=== PATIENT | female | born 1980 | race Caucasian/White ===

== ENCOUNTER 2016-07-27 07:10 | Day surgery (SDC) | payer OTHER ==
[~2016-07-27] VITALS: Ht 167.6 cm; Wt 84.1 kg
[~2016-07-27 07:10] MED LIST: CATAPRES0.1 MG PO; PRINIVIL10 MG PO
[2016-07-27 10:37] LABS: HEMATOCRIT 40.3 % (36.0-48.0); MCH 27.8 pg (26.0-34.0); MCHC 32.3 g/dL (31.0-37.0); MCV 86.3 fL (80.0-100.0); MEAN PLATELET VOLUME 10.8 fL (7.4-10.4); RBC 4.67 10x6/uL (4.00-5.40); RDW 14.5 % (11.5-14.5); WBC 8.4 10x3/uL (4.8-10.8)
[2016-07-27 10:54] VITALS: BP 111/70; Ht 167.6 cm; Wt 84.1 kg
--- NOTE | 2016-07-27 14:55 | NUR ---
1430--IV DC'D, PT UP TO DRESS AT THIS TIME. ANGUS THORNE 1445--DISCHARGE INSTRUCTIONS GIVEN, PT VERBALIZES UNDERSTANDING. PT OFF UNIT VIA WC. ANGUS THORNE
--- NOTE | 2016-08-17 13:10 | HP ---
PATIENT: OSWALDO PATEL MEDICAL RECORD: [id number] ACCOUNT: [id number] [facility] 76 ADMISSION DATE: 07/27/16 HISTORY AND PHYSICAL EXAMINATION Preoperative History and Physical HISTORY OF PRESENT ILLNESS: Oswaldo is a 36-year-old female. She has been having persistent problems with nasal obstruction and chronic sinusitis. She is being admitted for septoplasty, bilateral inferior turbinate reduction and right middle meatal antrostomy. PAST MEDICAL HISTORY: Includes hypertension. PAST SURGICAL HISTORY: Includes cholecystectomy, dissection of right ovary, tubal ligation, and colonoscopy. CURRENT MEDICATIONS: Lisinopril. ALLERGIES: No known drug allergies. PHYSICAL EXAMINATION: GENERAL: She is healthy-appearing, developmentally normal. FACE: Normal and symmetric, no lesions. EYES: Sclerae and conjunctivae are normal. EARS: Canals and TMs are normal. NOSE: She had very large turbinates She has some polypoid changes of the middle turbinate. She has got septal deviation, no masses or drainage. ORAL CAVITY AND OROPHARYNX: Tongue protrudes to midline. Palate is normal. NECK: No masses. No adenopathy. CHEST: Clear. CARDIOVASCULAR: Regular rate and rhythm, no murmur. EXTREMITIES: Normal. DIAGNOSTIC DATA: CT shows occlusion of the right ostiomeatal complex and mucosal thickening of the right maxillary sinus and some minimal changes in the sphenoid. IMPRESSION: Nasal obstruction, septal deviation, turbinate hypertrophy and chronic sinusitis. PLAN: Septoplasty, bilateral inferior turbinate reduction, and right middle meatal antrostomy. TRANSINT:[id number] Voice Confirmation ID: [id number] DOCUMENT ID: [id number] HISTORY AND PHYSICAL [id number] OSWALDO PATEL GUCCI PALOMARES MD at 1310 CC: [id number] DICTATION DATE: 07/24/16 0850 ACCOUNT EXECUTIVE METALWORKING: 07/24/16 0923 [facility] 07/27/16 [place] [id number]
--- NOTE | 2016-08-17 13:10 | OP ---
PATIENT NAME: OSWALDO PATEL MEDICAL RECORD: [id number] :76 [facility] DATE: SURGEON: GUCCI PALOMARES MD DATE OF OPERATION: 07/27/2016 PREOPERATIVE DIAGNOSES: Nasal obstruction, septal deviation and bilateral inferior turbinate hypertrophy and right chronic maxillary sinusitis. POSTOPERATIVE DIAGNOSES: Nasal obstruction, septal deviation and bilateral inferior turbinate hypertrophy and right chronic maxillary sinusitis. PROCEDURES: 1. Septoplasty. 2. Bilateral inferior turbinate reduction. 3. Right endoscopic middle meatal antrostomy. SURGEON: Gucci Palomares MD ANESTHESIA: General orotracheal. BLOOD LOSS: Less than 5 cc. PACKING: Aguilar splints bilaterally. COMPLICATIONS: None. DISPOSITION: Recovery stable. DESCRIPTION OF PROCEDURE: She was brought to the operating room and placed in supine position, sedated and intubated by anesthesia. She has already been decongested with Afrin ____. The table was turned 90 degrees. Head drape was applied, then using a headlight and nasal speculum, the nose was examined. The inferior turbinates, septum, floor of the nose and the uncinate on the right side were injected with a total of less than 2 cc of 1% lidocaine with 1:100,000 epinephrine and 2 Afrin pledgets were placed in each side of the nose. She was positioned, prepped and draped in usual fashion for a sinus surgery. Then, using a Bayonet, both Afrin pledgets were removed from the right side. A 0-degree scope was inserted and the middle turbinate was medialized with a freer. The uncinate was fractured anteriorly with a ball-tipped probe taken down with a microdebrider. Some polypoid redundant tissue inferior to the meatus was taken down with a backbiter and then with a straight biting pediatric forcep and then olive tip suction was inserted into the maxillary sinus. There was not any really purulent drainage. There was minimal bleeding there. The sinus was irrigated repeatedly with a large curved olive tip suction and a 60 cc syringe and then the nasal cavity was suctioned and the nasal sinus was suctioned removing the saline. Then, a 30-degree scope was used to look in the sinus and there was some mild mucosal edema, but sinus was otherwise normal. An Afrin pledget was placed in the right middle meatus and then the inferior turbinates were medialized, the inferior portion was taken down with a combination a Gruenwald and the microdebrider to take down some of the polypoid tissue and then suction cautery on a setting of 25 was used to stop any bleeding and then both inferior turbinates were outfractured with a Medina elevator. The pledget was then removed from the right middle meatus and there was no bleeding there. That area was clean. A left-sided [place] incision was made and ipsilateral mucoperichondrial flap was elevated. There was a large OPERATIVE REPORT [id number] OSWALDO PATEL cartilaginous spur folded out into the left nasal cavity. Caudal was used to divide and remove that cartilage, then the bony cartilaginous junction was disarticulated and a bony spur on the left side posteriorly was removed as well. Some relaxing incisions in the septal cartilage allowed the septum to fall back into midline and the [place] incision was closed with interrupted 4-0 chromic. With the septum back into the midline, both sides of the nose were examined. With the area clean and dry, the nasopharynx was suctioned and the Aguilar splints were placed bilaterally with some mupirocin ointment and sutured through the anterior membranous septum with 2-0 Prolene on a Moy needle. She was awakened, extubated, and transported to recovery in good condition. No complications. Eye exam was normal and her counts were correct. TRANSINT:[id number] Voice Confirmation ID: [id number] DOCUMENT ID: [id number] GUCCI PALOMARES MD at 1310 CC: [id number] DICTATION DATE: 07/27/16 1239 FOLDING MACHINE FEEDER: 07/27/161926 [facility] 07/27/16 [facility] [address] [place] [id number]
== END 2016-07-27 14:45 | disposition home or self-care (01) ==
LOC: D.OPS 07:10 → D.PAN 09:00 → D.OPS 14:45
PROVIDERS: Anesthesiology
DX: J34.2 Deviated nasal septum (principal); J34.89 Other specified disorders of nose and nasal sinuses; J34.3 Hypertrophy of nasal turbinates; J32.0 Chronic maxillary sinusitis; I10 Essential (primary) hypertension; Z79.899 Other long term (current) drug therapy